=== PATIENT | female | born 1990 | race Caucasian/White ===

== ENCOUNTER 2019-01-23 01:33 | Inpatient (IN) | payer OTHER ==
[~2019-01-23] VITALS: Ht 152.4 cm; Wt 58.0 kg
[~2019-01-23 01:33] MED LIST: PREN-93 PO
[2019-01-23 02:16] VITALS: Ht 152.4 cm; Wt 58.0 kg
[2019-01-23 02:17] VITALS: BP 88/51; PULSE 75; RESP 18
[2019-01-23] MEDS ORDERED: TERBUTALINE 1 MG/ML INJ SC PRN (02:30)
[2019-01-23] MEDS: LACTATED RINGER'S 1,000 ML IV SCH ×2 (02:43→05:12)
[2019-01-23] MEDS ORDERED: LACTATED RINGER'S 1,000 ML IV SCH (08:05)
--- NOTE | 2019-01-23 08:05 | TRIAGE ---
OB Triage Datetime Report Generated by CPN: 01/23/2019 08:04 Datetime: 01/23/2019 06:30 Labor Evaluation Frequency: 0 Monitor Mode: External Pattern: Normal: <= 5 Contractions in 10 Minutes Resting Tone Aynor: Relaxed Heart Rate FHR Baseline Rate: 135 Monitor Mode: External US FHR Baseline Changes: No Baseline Change Variability: Moderate 6-25 bpm Accelerations: 15X15 Decelerations: None Category: Category I Datetime: 01/23/2019 06:16 Assessment Type: Admission Assessment Vaginal Bleeding: None Maternal Assessment Level of Consciousness: Keenly Alert, Responsive DTR's/Clonus: DTRs 2+; No Clonus Headache: Denies Blurred Vision: No Respiratory Effort: Unlabored; Regular Rhythm; Equal Expansion Breath Sounds, Left: Clear and Equal Breath Sounds, Right: Clear and Equal Nausea/Vomiting: Denies RUQ Epigastric Pain: Denies Lower Extremities Edema: None Degree: None Upper Extremities Edema: None Degree: None Facial Edema: None Fall Risk Assessment History of Falling: (0) No Secondary Diagnosis: (0) No Ambulatory Aid: (0) Bedrest/Nurse Assist IV Therapy: (20) Yes Gait: (0) Normal/Bedrest/Immobile Mental Status: (0) Oriented to Own Ability Fall Score: 20 Fall Risk Score Definition: No Risk: No action required Pain Assessment Pain Scale: 0 Pain Presence: None/Denies Pain Type: N/A Datetime: 01/23/2019 05:30 Stage of : OB Triage Labor Evaluation Frequency: Occasional Monitor Mode: External Duration (sec)2399: 40-60 Quality: Mild Pattern: Normal: <= 5 Contractions in 10 Minutes Resting Tone Aynor: Relaxed Heart Rate FHR Baseline Rate: 130 Monitor Mode: External US FHR Baseline Changes: No Baseline Change Variability: Moderate 6-25 bpm Accelerations: 15X15 Decelerations: None Category: Category I Datetime: 01/23/2019 05:00 Stage of : OB Triage Labor Evaluation Frequency: Irregular Monitor Mode: External Duration (sec)2399: 40-60 Quality: Mild Pattern: Normal: <= 5 Contractions in 10 Minutes Resting Tone Aynor: Relaxed Heart Rate FHR Baseline Rate: 130 Monitor Mode: External US FHR Baseline Changes: No Baseline Change Variability: Moderate 6-25 bpm Accelerations: 15X15 Decelerations: None Datetime: 01/23/2019 04:47 Stage of : OB Triage Datetime: 01/23/2019 04:00 Stage of : OB Triage Labor Evaluation Frequency: Irregular Monitor Mode: External Duration (sec)2399: 40-100 Quality: Mild Pattern: Normal: <= 5 Contractions in 10 Minutes Resting Tone Aynor: Relaxed Heart Rate FHR Baseline Rate: 130 Monitor Mode: External US FHR Baseline Changes: No Baseline Change Variability: Moderate 6-25 bpm Accelerations: 15X15 Decelerations: None Category: Category I Datetime: 01/23/2019 03:45 Stage of : OB Triage Pain Assessment Pain Scale: 0 Pain Presence: None/Denies Pain Type: N/A Pain Assessment Comments: Pt continues to deny pain Datetime: 01/23/2019 03:41 Stage of : OB Triage Datetime: 01/23/2019 03:15 Stage of : OB Triage Datetime: 01/23/2019 03:00 Stage of : OB Triage Labor Evaluation Frequency: 1-8 Monitor Mode: External Duration (sec)2399: 40-90 Quality: Mild Pattern: Normal: <= 5 Contractions in 10 Minutes Resting Tone Aynor: Relaxed Heart Rate FHR Baseline Rate: 130 Monitor Mode: External US FHR Baseline Changes: No Baseline Change Variability: Moderate 6-25 bpm Accelerations: 15X15 Decelerations: None Category: Category I Datetime: 01/23/2019 02:45 Stage of : OB Triage Datetime: 01/23/2019 02:43 Stage of : OB Triage Assessment Type: Triage Datetime: 01/23/2019 02:24 Stage of : OB Triage Datetime: 01/23/2019 02:00 Stage of : OB Triage Labor Evaluation Frequency: 3.5 Monitor Mode: External Duration (sec)2399: 60-80 Quality: Mild Pattern: Normal: <= 5 Contractions in 10 Minutes Resting Tone Aynor: Relaxed Heart Rate FHR Baseline Rate: 130 Monitor Mode: External US Variability: Moderate 6-25 bpm Accelerations: 15X15 Decelerations: None Category: Category I Datetime: 01/23/2019 01:58 Stage of : OB Triage Assessment Type: Triage Maternal Assessment Level of Consciousness: Keenly Alert, Responsive DTR's/Clonus: DTRs 2+; No Clonus Headache: Denies Blurred Vision: No Respiratory Effort: Unlabored; Regular Rhythm; Equal Expansion Breath Sounds, Left: Clear and Equal Breath Sounds, Right: Clear and Equal Nausea/Vomiting: Denies RUQ Epigastric Pain: Denies Lower Extremities Edema: None Degree: None Upper Extremities Edema: None Degree: None Facial Edema: None Temperature Route: Oral Fall Risk Assessment History of Falling: (0) No Secondary Diagnosis: (0) No Ambulatory Aid: (0) Bedrest/Nurse Assist IV Therapy: (0) No Gait: (0) Normal/Bedrest/Immobile Mental Status: (0) Oriented to Own Ability Fall Score: 0 Fall Risk Score Definition: No Risk: No action required Pain Assessment Pain Scale: 0 Pain Presence: None/Denies Pain Type: N/A Datetime: 01/23/2019 01:54 Time of Arrival: 01/23/2019 00:19 EGA: 33.0 Arrived By: Ambulatory Arrived From: Home Chief Complaint: Pt reports post-coital bleeding x1 @0000 Pt denies any pain or cramping Movement: Present Contractions: Denies/Absent Rupture of Membranes: Denies Vaginal Bleeding: Small Vaginal Discharge: Present Recent Sexual Intercouse: Yes Abdominal Trauma: Not Applicable Patient Complaints: Other Time Provider Notified: 01/23/2019 02:24 Provider Notified: Initial Plan: IV hydration, Terbutaline Datetime: 01/23/2019 01:52 Monitor Mode: External Contraction Comments: Aynor applied Datetime: 01/23/2019 01:50 Heart Rate FHR Baseline Rate: 130 Monitor Mode: External US Comments: EFM applied
--- NOTE | 2019-01-23 08:20 | HP ---
Date/Time of Note Date/Time of Note DATE: 01/23/19 TIME: 08:14 OB - History Hx of Present Free Text/Dictation Patient is a 28-year-old 2 para 1 at 33 weeks of gestation with estimated date of delivery March 13, 2019 Patient presents with an episode of vaginal bleeding postcoitally last night She currently denies vaginal bleeding this morning, denies leaking fluid Patient reports positive movement Estimated Due Date: Mar 13, 2019 : 2 Para: 1 Care: Limited Care Obstetrical Complications: None Medical Complications: None Past Family/Social History * Past Medical, Surgical, Family and Obstetric Histories reviewed from chart. OB Admission Exam Vital Signs Vital Signs Vital Signs Date Temp Pulse Resp B/P (MAP) Pulse Ox O2 O2 Flow FiO2 Time Delivery Rate 01/23/19 97.7 75 18 88/51 (63) Room Air 02:17 Physical Exam HEENT: WNL Heart: Rhythm Normal Lungs: Clear, Equal Abdomen: WNL Extremities: Normal Reflexes: Normal Cervical Dilatation: None Membranes: Intact Heart Rate: 140's Accelerations: Accelerations Present Decelerations: No Decelerations Varibility: Moderate Contractions on Admission: >10 Minutes Apart Last 72 hours Lab Results AMENDMENT: 01/23/2019 7:59:30 AM Rolanda Garcia Md The cervix was closed and measures 4.1 cm in length. PROCEDURE: US OB including transvaginal scanning. CLINICAL INDICATION: labor with vaginal bleeding TECHNIQUE: Transabdominal and transvaginal views of the pelvis are available for review. Transvaginal scanning was needed for better evaluation of the cervix. COMPARISON: 07/18/2018 FINDINGS: A single live intrauterine gestation was seen, heart rate 135 beats per minute and in cephalic position. Complete anatomic survey was not performed but there did appear to be some distension of the stomach and at least 1 bowel loop. The placenta is posterior without evidence of previa. Some placental lakes are seen. In addition, a focal hypoechoic area adjacent to the anteroinferior placenta was identified, measuring 2.7 x 0.8 cm. This was questioned as a possible area of partial placental abruption by the cda teacher. IMPRESSION: Possible partial placental abruption without evidence of previa. A single live intrauterine gestation identified with slightly distended stomach and at least 1 bowel loop. Complete anatomic survey was not performed at this time. Closed cervix. Results were called to Eleonora Sood RN, at 01/23/2019 4:40:50 AM RPTAT: HLBE Toma Garcia Physician Date Time Electronically viewed and signed by Toma Garcia, Physician on 01/23/2019 07:59 LE/ CC: [place] MD [id number] PROCEDURE: US OB. CLINICAL INDICATION: Size and dates , labor TECHNIQUE: Multiple sonographic images of the pelvis and gravid uterus were obtained. The images were reviewed on a PACS workstation. COMPARISON: 01/23/2019 FINDINGS: Gestation: Single live intrauterine gestation. Cardiac activity: 146 beats per minute. Presentation: Vertex. Placenta: Location: Posterior Appearance: 2.7 x 1.2 x 2.1 cm placental barksdale. Previously seen placenta abruption not seen in the current study. Measurements: BPD = 8.4 cm, 33 weeks and 6 days HC = 29.4 cm, 32 weeks and 3 days AC = 31.6 cm, 35 weeks and 4 days FL = 6.4 cm, 33 weeks and 1 day Gestational Age: AUA estimated gestational age: 33 weeks 5 days LMP estimated gestational age: 33 weeks 0 days AUA estimated date of delivery: 03/08/19 The EFW = 2425 g, 83%ile based on LMP age. There is a persistently dilated loop of bowel adjacent to the stomach, measuring 9 mm. RPTAT: AA IMPRESSION: Single live intrauterine gestation of 33 weeks 5 days by ultrasound criteria. Posterior placenta with a small placental barksdale. Previously seen area of possible abruption not visualized in the current study. Follow-up is recommended. .Casey Eldridge MD, Date Time Electronically viewed and signed by .Casey Eldridge MD, on 01/23/2019 09:56 .S/ CC: RASHAD CHAPA MD [phone] OB Assessment/Plan Reason for admission: observation (33 weeks of gestation with vaginal bleeding and placental barksdale), labor ( contractions) Other plan: Admit to antepartum for continuous observation IV fluid Patient received terbutaline subcu x1 dose Betamethasone for lung maturity Patient signed out RASHAD VANESSA MD Jan 23, 2019 08:20
[2019-01-23] MEDS ORDERED: BETAMET NA PHOS/AC(6 MG/ML) 2 ML INJ SYG IM SCH (08:30)
[2019-01-23] MEDS ORDERED: PRENATAL VITAMIN PO SCH (09:00)
== END 2019-01-23 12:00 | disposition left against medical advice (07) | DRG 831 ==
LOC: OBT 01:33 → L-D 01:36 → OBT 04:47
PROVIDERS: ADMIT Obstetrics & Gynecology; ATTEND Obstetrics & Gynecology
DX: O46.8X3 Other antepartum hemorrhage, third trimester (principal); O60.03 Preterm labor without delivery, third trimester; Z3A.33 33 weeks gestation of pregnancy
CPT/HCPCS: 36415; 76815; 76817; 76818; 80053; 81001; 85025; 85610; 85730; 86592; 86850; 86900; 86901; 87086; 96360; 96361; 96372; G0463; J0702; J3105; J7120

== ENCOUNTER 2019-03-07 20:36 | Inpatient (IN) | payer OTHER ==
[~2019-03-07] VITALS: Ht 152.4 cm; Wt 60.9 kg
[~2019-03-07 20:36] MED LIST changes: +FERR134T PO
[2019-03-07] MEDS ORDERED: LACTATED RINGER'S 1,000 ML IV PRN (20:43)
[2019-03-07 20:50] VITALS: BP 119/77; PULSE 68; RESP 18
[2019-03-07] MEDS ORDERED: AMPICILLIN 2 GM/NS (PMX) 100 ML ONE (20:54)
[2019-03-07] MEDS: LACTATED RINGER'S 1,000 ML IV SCH (20:58)
[2019-03-07] MEDS ORDERED: MISOPROSTOL 200 MCG TAB PR PRN ×2 (21:00→22:30)
[2019-03-07] MEDS ORDERED: AMPICILLIN 2 GM/NS (PMX) 100 ML IV ONE (21:00)
[2019-03-07] MEDS ORDERED: OXYTOCIN 30 UNITS/LR 500 ML IV PRN ×2 (21:00→22:30)
[2019-03-07] MEDS ORDERED: LIDOCAINE 1% (MPF) 30 ML INJ INJ PRN (21:00)
[2019-03-07] MEDS ORDERED: IBUPROFEN 600 MG TAB PO PRN (21:00)
[2019-03-07] MEDS ORDERED: CARBOPROST 250 MCG INJ IM PRN ×2 (21:00→22:30)
[2019-03-07] MEDS ORDERED: OXYTOCIN 30 UNITS/LR 500 ML IV SCH ×3 (21:00→22:06)
[2019-03-07] MEDS ORDERED: METHYLERGONOVINE 0.2 MG INJ IM PRN ×2 (21:00→22:30)
[2019-03-07] MEDS ORDERED: MINERAL OIL LIGHT 10 ML VIAL TOP STA (21:35)
[2019-03-07] MEDS: LACTATED RINGER'S 1,000 ML IV* SCH (22:06)
[2019-03-07] MEDS ORDERED: DIBUCAINE 1% 30 GM OINT TOP PRN (22:30)
[2019-03-07] MEDS ORDERED: LANOLIN HPA 1 PKT TOP PRN (22:30)
[2019-03-07] MEDS ORDERED: BENZOCAINE 20% 56 ML SPRAY TOP PRN (22:30)
[2019-03-07] MEDS ORDERED: SENNA/DOCUSATE NA (8.6MG/50MG) TAB PO PRN (22:30)
[2019-03-07] MEDS ORDERED: ACETAMINOPHEN 325 MG TAB PO PRN ×2 (22:30)
[2019-03-07] MEDS ORDERED: WITCH HAZEL/GLYCERIN PAD PR PRN (22:30)
[2019-03-07] MEDS ORDERED: ONDANSETRON 4 MG INJ IV PRN (22:30)
[2019-03-07] MEDS ORDERED: MAGNESIUM HYDROXIDE 30ML CUP PO PRN (22:30)
[2019-03-07 23:35] VITALS: BP 130/79; PULSE 59; RESP 18
[2019-03-08] MEDS: AMPICILLIN 1 GM/NS (PMX) 50 ML IV SCH ×2 (01:00→05:00)
[2019-03-08] MEDS: LACTATED RINGER'S 1,000 ML IV SCH ×3 (02:25→20:43)
[2019-03-08 04:15] VITALS: BP 117/64; PULSE 72; RESP 16
[2019-03-08] MEDS: IBUPROFEN 600 MG TAB PO PRN ×2 (05:28→23:48)
[2019-03-08] MEDS: LACTATED RINGER'S 1,000 ML IV* SCH ×3 (06:06→22:06)
[2019-03-08 08:00] VITALS: BP 113/73; PULSE 63; RESP 19
[2019-03-08 12:00] VITALS: BP 112/58; PULSE 69; RESP 18
[2019-03-08 17:15] VITALS: BP 101/57; PULSE 60; RESP 18
[2019-03-08 19:20] VITALS: BP 102/53; PULSE 62; RESP 18
[2019-03-09 04:00] VITALS: BP 100/52; PULSE 55; RESP 18
[2019-03-09 08:00] VITALS: BP 107/71; PULSE 66; RESP 18
[2019-03-09] MEDS: IBUPROFEN 600 MG TAB PO PRN ×2 (12:12→18:01)
[2019-03-09 16:00] VITALS: BP 104/59; PULSE 57; RESP 18
[2019-03-09 20:00] VITALS: BP 110/59; PULSE 69; RESP 18
== END 2019-03-09 21:35 | disposition home or self-care (01) | DRG 807 ==
LOC: OBT 20:36 → L-D 20:36 → OBT 20:39 → L-D 20:39 → PP1 23:39
PROVIDERS: ADMIT Obstetrics & Gynecology Gynecology; ATTEND Obstetrics & Gynecology Gynecology
PROC: 10E0XZZ Delivery of Products of Conception, External Approach (ICD-10-PCS; principal; 2019-03-07)
DX: O80 Encounter for full-term uncomplicated delivery (principal); Z37.0 Single live birth; Z3A.39 39 weeks gestation of pregnancy
CPT/HCPCS: 80307; 85025; 85610; 85730; 86592; 86850; 86900; 86901; 87340; G0463; J0290; J2210; J2590; J7120